=== PATIENT | female | born 1980 | race Caucasian/White ===

== ENCOUNTER 2017-01-03 04:15 | Inpatient (IN) | payer BC ==
--- NOTE | ~2017-01-03 | OP ---
Record Of Operation [facility] [address] [place]. [address] NAME: VIOLETTE PFEIFFER : 84 STATUS : DIS IN PAT#: [id number] AGE: 36 ADM/REG DATE : 01/03/17 MR#: [id number] REPORT SERV DATE: 01/07/17 DICTATED BY: SANJIV PIÑA II DATE: 01/07/17 REPORT STATUS : Draft TRANSCRIBED BY: MODAriel DATE: 01/07/17 DATE OF PROCEDURE: 01/03/2017 PREOPERATIVE DIAGNOSES: 1. Low back pain, discogenic. 2. 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 3. Left lower extremity radiculopathy. POSTOPERATIVE DIAGNOSES: 1. Low back pain, discogenic. 2. 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 3. Left lower extremity radiculopathy. PROCEDURES: Stage I (anterior). 1. L5-S1 anterior interbody arthrodesis. 2. Application of prosthetic device, L5-S1. 3. Anterior instrumentation, L5-S1. Stage II (posterior). 1. Posterolateral arthrodesis, L5-S1. 2. Posterior nonsegmental instrumentation, L5-S1. 3. Use of local autograft, allograft substitute, and bone morphogenic protein. 4. Use of the stereotactic guidance. SURGEON: Sanjiv Piña M.D. (Dr. Briseno was the co-surgeon for the anterior interbody arthrodesis). FLUIDS: 3500 mL LR. ESTIMATED BLOOD LOSS: 175 mL. IMPLANTS: Globus and Alphatec. PREOPERATIVE HISTORY: This is a friendly 36-year-old female, who did very well following her L4-5 fusion for stenosis and radiculopathy. She is now seemingly developing back pain below this area. She feels like she can tell how the pain is just below her previous incision. She reports the location is different than it was previously. Her MRI shows some degeneration at L5-S1, but the collapse in the disk appears more notable with standing films. We discussed the pros and cons of surgery. We have tried to avoid additional surgery, but she simply continues to have increasing low back pain. Again, she did well following the other surgery. We again discussed the risks of the surgery as well as the benefits and overall she wished to proceed. DESCRIPTION OF PROCEDURE: After informed consent was obtained, the patient was brought to the operating room at her request and general anesthesia achieved. She was placed in the supine position. The abdomen was prepped and draped in a sterile fashion. Dr. Briseno Record Of Operation [place] [id number] [facility] [place]. [address] NAME: VIOLETTE PFEIFFER : 84 STATUS : DIS IN PAT#: [id number] AGE: 36 ADM/REG DATE : 01/03/17 MR#: [id number] REPORT SERV DATE: 01/07/17 DICTATED BY: SANJIV PIÑA II DATE: 01/07/17 REPORT STATUS : Draft TRANSCRIBED BY: MODL DATE: 01/07/17 performed retroperitoneal exposure. Please see his dictation for details. Next, the proper level was radiographically confirmed. Next, under loupe magnification head lamp, the diskectomy was completed at L5-S1. The disk material was removed and the endplates prepared. The disk overall did appear significantly degenerative and overall consistent with her symptoms. The space was now trialed and the prosthetic device chosen and placed at L5-S1. This contained allograft substitute and bone morphogenic protein. Next, the anterior instrumentation was applied with two screws into L5 and S1. Please note, this is a separate plate and screw construct placed for biomechanical reasons. At this point, standard closure was performed and standard dressings were applied. The patient was then turned in the prone position. The back was prepped and draped in a sterile fashion. The stereotactic spinal pin was now placed into the right iliac crest followed by completion of the intraoperative CT scan. Next on the left, we then placed a small incision and the deep retractor was placed followed by decortication of the posterior lamina of L5 and S1. The facet capsule was removed additionally. The area was now irrigated followed by use of the stereotactic guidance to place the pedicle screw into L5 and S1. A repeat CT scan confirmed acceptable placement of the implants. The prieto already was then well assembled and final tightening performed. Next, the local autograft, allograft substitute, and bone morphogenic protein was then placed along the decorticated surfaces. Standard closure was performed, and the patient was extubated, and transferred to PACU in stable condition. MEÑO/JAN Sanjiv Piña II, M.D. / [id number] CC: Mihaela Angeles II, M.D.
--- NOTE | ~2017-01-03 | OP ---
Record Of Operation [facility] [address] [place]. [address] NAME: VIOLETTE PFEIFFER : 84 STATUS : ADM IN PAT#: [id number] AGE: 36 ADM/REG DATE : 01/03/17 MR#: [id number] REPORT SERV DATE: 01/03/17 DICTATED BY: DOUGLAS GOMEZ II DATE: 01/03/17 REPORT STATUS : Draft TRANSCRIBED BY: MODL DATE: 01/03/17 DATE OF PROCEDURE: 01/03/2017 ATTENDING CO-SURGEON: Douglas Gomez MD. SECOND ATTENDING CO-SURGEON: Lon Piña MD. CLEANER GREASER: Dr. Benítez. PREOPERATIVE DIAGNOSIS: Severe degenerative disk disease at L5-S1. POSTOPERATIVE DIAGNOSIS: Severe degenerative disk disease at L5-S1. PROCEDURES: 1. Anterior exposure of the lumbar spine. 2. Anterior lumbar interbody fusion with instrumentation at L5-S1. ANESTHESIA: General. ESTIMATED BLOOD LOSS: Less than 50 mL. Please note, I am a co-surgeon. I am dictating a portion of the note. Remaining portion is found in the note by Dr. Piña. DETAILS OF PROCEDURE: The patient was taken to the operating room and placed in supine position on the table. General anesthesia was achieved. Protective padding and a lumbar roll was placed. We then prepped and draped in a sterile fashion. An incision was made directly over L5-S1. The subcutaneous tissues were divided with electrocautery. The rectus sheath on the left side was opened along the length of the incision and the rectus muscle was retracted laterally. We entered the preperitoneal space and bluntly dissected into the retroperitoneal space and swept the peritoneum, the ureter, and abdominal contents to the right to expose the aorta and iliac vessels. The middle sacral vessels were identified and ligated with 2-0 silk suture. With continued dissection, we completely immobilized the vessels and exposed L5-S1, and we marked this with fluoroscopy. A diskectomy with graft replacement and instrumentation was performed. Please see Dr. Piña's notes for details of this. Once x-ray confirmed adequate placement, we inspected the retroperitoneum. It was hemostatic and the ureter was intact. We removed the retractors and allowed the abdominal contents to return to their normal anatomic position. We closed the fascia with running PDS and interrupted Vicryl. We closed the skin with Monocryl. At the end of procedure, the patient is stable and tolerated it well. LA/JAN Record Of [place] [address] [place]. [address] NAME: VIOLETTE PFEIFFER : 84 STATUS : ADM IN PAT#: [id number] AGE: 36 ADM/REG DATE : 01/03/17 MR#: [id number] REPORT SERV DATE: 01/03/17 DICTATED BY: DOUGLAS GOMEZ II DATE: 01/03/17 REPORT STATUS : Draft TRANSCRIBED BY: JAN DATE: 01/03/17 Douglas Gomez II, M.D. / [id number] CC: Lon Piña II, M.D.
[~2017-01-03 04:15] MED LIST: ASAB PO; DIOV160 PO; NEUR100 PO; NEUR300 PO; NORCO1 TA2 PO; ZANAFLEX 4 MG TA4 MG PO; [UNRECOGNIZED DRUG - OTHER]
[2017-01-03 06:47] LABS: HEMATOCRIT 24.7 % (36.0-48.0); HEMOGLOBIN 8.7 g/dL (12.0-16.0)
[2017-01-05] MEDS ORDERED: V5 PO (10:48)
[2017-01-05] MEDS ORDERED: MSCONTIN PO (10:48)
[2017-01-05] MEDS ORDERED: OXYCOD PO (10:49)
== END 2017-01-05 12:03 | disposition home or self-care (01) | DRG 455 ==
LOC: SDC/OF 04:15 → PACU 11:14 → 3SO 12:44
PROVIDERS: Orthopaedic Surgery
DX: M51.17 Intervertebral disc disorders with radiculopathy, lumbosacral region (principal); F17.210 Nicotine dependence, cigarettes, uncomplicated
CPT/HCPCS: 36415; 82330; 82803; 82947; 82962; 84132; 84295; 84703; 85014; 85018; 86850; 86900; 86901; 87641; 88304; 88311; 97116-GP; 97162-GP; A9270-GY; C1713; J0690; J1170; J1644; J2250; J2405; J2710; J3010